=== PATIENT | male | born 1990 | race Two or more races ===

== ENCOUNTER → 2016-12-28 | Outpatient (CLI) | payer BC ==
--- NOTE | 2016-12-28 14:13 | REP ---
SCROTAL ULTRASOUND: Real-time sonographic evaluation of the scrotum and contents performed. There is reportedly a history of enlarged left testicle for one year. Right testicle appears normal in size and echotexture measuring 4.5 x 2.4 x 3.6 cm. The left testicle is almost completely replaced by a large heterogeneous hypoechoic mass measuring approximately 5.8 x 3.6 x 6.1 cm. A small amount of normal testicular tissue is seen anteriorly. No mass is seen in the right epididymis. The left epididymis demonstrates heterogeneous echotexture and enlargement. The diameter on the left is approximately 17 mm in the region of the epididymal head. There is hyperemia in the left testicle with duplex Doppler evaluation. There is no torsion, with RI of the right testicle 0.65 and the left testicle 0.57. IMPRESSION: Large mass left testicle most consistent with neoplasm. There may be extension into the left epididymal head with enlargement and heterogeneous echotexture of that structure. Signed by José Marsh MD 12/28/2016 04:40 P
== END ==
LOC: M RAD 12:56
PROVIDERS: ATTEND Family Medicine
DX: N50.89 Other specified disorders of the male genital organs (principal)

== ENCOUNTER → 2016-12-30 | Outpatient (REF) | payer BC ==
[~2016-12-30] MED LIST: SERT50TA PO
[2016-12-30 11:43] LABS: ALBUMIN 4.1 GM/DL (3.2-5.2); ALBUMIN/GLOBULIN RATIO 1.37 (1.00-1.93); ALKALINE PHOSPHATASE 75 U/L (45-117); ALT/SGPT 36 U/L (12-78); ANION GAP 6 MEQ/L (8-16); AST/SGOT 16 U/L (15-37); BLOOD UREA NITROGEN 17 MG/DL (7-18); CALCIUM LEVEL 8.7 MG/DL (8.5-10.1); CARBON DIOXIDE LEVEL 28 MEQ/L (21-32); CHLORIDE LEVEL 106 MEQ/L (98-107); CHOLESTEROL LEVEL 151 MG/DL (<200); GLOMERULAR FILTRATION RATE > 60.0 (>60); GLUCOSE, FASTING 109 MG/DL (70-105); POTASSIUM SERUM 4.2 MEQ/L (3.5-5.1); SODIUM LEVEL 140 MEQ/L (136-145); TOTAL PROTEIN 7.1 GM/DL (6.4-8.2); TRIGLYCERIDES LEVEL 61 MG/DL (<150)
== END ==
LOC: M SFHCCLAY 08:42
PROVIDERS: ATTEND Family Medicine
DX: Z00.00 Encounter for general adult medical examination without abnormal findings (principal)

== ENCOUNTER → 2016-12-30 | Outpatient (CLI) | payer BC ==
[2016-12-30 14:30] LABS: MEAN CORPUSCULAR HEMOGLOBIN 31.4 pg (27.0-33.0); MEAN CORPUSCULAR HGB CONC 33.9 g/dl (32.0-36.5); MEAN CORPUSCULAR VOLUME 92.6 fl (80.0-96.0); WHITE BLOOD COUNT 6.8 K/mm3 (4.0-10.0)
[2016-12-30 14:35] LABS: INR 0.98
[2016-12-30 15:04] LABS: ANION GAP 7 MEQ/L (8-16); BLOOD UREA NITROGEN 15 MG/DL (7-18); CALCIUM LEVEL 9.2 MG/DL (8.5-10.1); CARBON DIOXIDE LEVEL 27 MEQ/L (21-32); CHLORIDE LEVEL 105 MEQ/L (98-107); CREATININE FOR GFR 0.79 MG/DL (0.70-1.30); GLOMERULAR FILTRATION RATE > 60.0 (>60); GLUCOSE, FASTING 89 MG/DL (70-105); POTASSIUM SERUM 4.4 MEQ/L (3.5-5.1); SODIUM LEVEL 139 MEQ/L (136-145)
== END ==
LOC: M SMT 12:12
PROVIDERS: ATTEND Nurse Practitioner Women's Health
DX: Z01.818 Encounter for other preprocedural examination (principal); N50.9 Disorder of male genital organs, unspecified

== ENCOUNTER → 2017-01-03 | Day surgery (SDC) | payer BC, SELFPAY ==
[~2017-01-03] VITALS: Ht 185.4 cm; Wt 124.7 kg
[~2017-01-03] MED LIST changes: +BUPIVACAINE HCL 0.25% 30 ML VIAL As Ordered ONE; +KETOROLAC 30 MG/ML VIAL (J1885) As Ordered ONE; +LIDOCAINE 2% INJ 100 MG/5 ML SDV (FOR ANES.) As Ordered ONE; +LR 1,000 ML IV SCH; +MEPERIDINE INJ 25 MG/ML VIAL (J2175) As Ordered ONE; +METOCLOPRAMIDE INJ 10MG/2ML VIAL (J2765) IV PRN; +MIDAZOLAM INJ 2 MG/2 ML VIAL (J2250) As Ordered ONE; +MORPHINE 2 MG/ML 1ML SYRINGE IV PRN; +ONDANSETRON 4MG/2ML VIAL (J2405) As Ordered ONE; +ONDANSETRON 4MG/2ML VIAL (J2405) IV PRN; +PROPOFOL 200 MG/20 ML VIAL As Ordered ONE; +ROCURONIUM BROMIDE 50 MG/5 ML VIAL As Ordered ONE; +ceFAZolin SOD 1 GM in D5W MINI-BAG PLUS 50 ML IV ONE; +fentaNYL 100 MCG/2 ML INJECTION (J3010) As Ordered ONE; +fentaNYL 100 MCG/2 ML INJECTION (J3010) IV PRN
[2017-01-03] MEDS: MEPERIDINE INJ 25 MG/ML VIAL (J2175) IV PRN ×2 (14:13→14:20)
[2017-01-03] MEDS: PERCOCET 5MG/325MG TAB PO PRN ×2 (14:39→15:02)
[2017-01-03 17:50] VITALS: BP 119/71
--- NOTE | 2017-01-04 18:37 | RO ---
DATE OF PROCEDURE: 01/03/2017 PREPROCEDURE DIAGNOSIS: Left testicular mass. POSTPROCEDURE DIAGNOSIS: Left testicular mass. PROCEDURE: Left radical orchiectomy. SURGEON: Mark Foy MD MACHINE ROOM ENGINEER: None. ANESTHESIA: General. OPERATIVE INDICATIONS: This 26-year-old male who was found to have a large heterogeneous and indurated left testicle. Left scrotal ultrasound was notable for an inflammatory process seemingly involving the majority of the left testicle, which raised concern for testicular cancer. It was recommended that he be brought to the operating room today for the above listed procedure. DESCRIPTION OF PROCEDURE: The patient was brought to the operating room and general anesthesia was induced. Prophylactic antibiotics were infused. He was then placed in the supine position and prepped and draped in the usual sterile fashion. At this point, an approximately 3-4 cm incision was made over the left external ring. We then dissected down through the subcutaneous tissue and opened the fascia using the Metzenbaum scissors. The external spermatic tissue was then released using Bovie electrocautery and the spermatic cord identified. At this point, a [place] drain was placed around the spermatic cord to occlude it. We then pulled the testicle through our incision and released all the gubernacular fibers using the Bovie electrocautery. We kept doing this until the testicle was released from the scrotum. We then dissected the spermatic cord up to the level of the internal ring; and at this point, a right-angle clamp was placed on the spermatic cord. Just distal to the clamp, the cord was split into two separate packets and two additional clamps were placed around each of these packets. At this point, the spermatic cord was transected just distal to those two clamps. Two separate #0 silk ties were then placed around each of these clamps to ligate each of the packets. These ties were cut long. Next, a #0 silk suture ligature was placed just proximal to the more proximal right-angle clamp and this was tied down. This #0 silk suture was also cut long in case needed for future identification. At this point, hemostasis was excellent. We then irrigated the wound with warm saline and then suctioned it all out. At this point, I then closed the external oblique fascia using a running #2-0 Vicryl suture and I made sure not to catch the ilioinguinal nerve in this stitch. Of note, the patient's fascia did not appear to be very strong, but I did reapproximate it well. We then irrigated the subcutaneous tissue with warm saline, and then the subcutaneous tissues were reapproximated with interrupted #2-0 chromic sutures. Skin was then closed with a running #4-0 Monocryl subcuticular stitch. Local anesthesia was then applied and, after this point, Dermabond was applied and this marked the conclusion of the procedure. The patient was then awakened from the anesthesia and transported to the recovery room in stable condition. ESTIMATED BLOOD LOSS: 5 mL. INTRAOPERATIVE COMPLICATIONS: None. SPECIMENS: Left testicle and spermatic cord. PLAN: The patient will followup in the clinic in approximately 2 weeks to discuss his pathology results. I will also get a CAT scan of his abdomen and pelvis to assess for any retroperitoneal disease. ROSLYN
== END | disposition home or self-care (01) ==
LOC: M SDC 09:22
PROVIDERS: ATTEND Urology
DX: C62.92 Malignant neoplasm of left testis, unspecified whether descended or undescended (principal); F41.9 Anxiety disorder, unspecified; F17.200 Nicotine dependence, unspecified, uncomplicated; E66.9 Obesity, unspecified; Z79.899 Other long term (current) drug therapy

== ENCOUNTER → 2017-01-24 | Outpatient (CLI) | payer BC ==
[~2017-01-24] MED LIST changes: -BUPIVACAINE HCL 0.25% 30 ML VIAL As Ordered ONE; -KETOROLAC 30 MG/ML VIAL (J1885) As Ordered ONE; -LIDOCAINE 2% INJ 100 MG/5 ML SDV (FOR ANES.) As Ordered ONE; -LR 1,000 ML IV SCH; -MEPERIDINE INJ 25 MG/ML VIAL (J2175) As Ordered ONE; -METOCLOPRAMIDE INJ 10MG/2ML VIAL (J2765) IV PRN; -MIDAZOLAM INJ 2 MG/2 ML VIAL (J2250) As Ordered ONE; -MORPHINE 2 MG/ML 1ML SYRINGE IV PRN; -ONDANSETRON 4MG/2ML VIAL (J2405) As Ordered ONE; -ONDANSETRON 4MG/2ML VIAL (J2405) IV PRN; -PROPOFOL 200 MG/20 ML VIAL As Ordered ONE; -ROCURONIUM BROMIDE 50 MG/5 ML VIAL As Ordered ONE; -ceFAZolin SOD 1 GM in D5W MINI-BAG PLUS 50 ML IV ONE; -fentaNYL 100 MCG/2 ML INJECTION (J3010) As Ordered ONE; -fentaNYL 100 MCG/2 ML INJECTION (J3010) IV PRN
--- NOTE | 2017-01-25 02:58 | REP ---
Clinical: Testicular cancer . Comparison: None . Technique: PA and lateral. Findings: The mediastinum and cardiac silhouette are normal. The lung emmanuel are clear and without acute consolidation, effusion, or pneumothorax. The skeletal structures are intact and normal. Impression: 1. No acute cardiopulmonary process. Signed by Aubrey Mitchell MD 01/25/2017 02:49 A
[2017-01-25 14:16] LABS: HCG SERUM TUMOR MARKER QUANT < 1 mIU/mL (0-3)
== END ==
LOC: M LAB 11:16
PROVIDERS: ATTEND Urology
DX: C62.90 Malignant neoplasm of unspecified testis, unspecified whether descended or undescended (principal)

== ENCOUNTER → 2017-02-15 | Outpatient (CLI) | payer BC ==
--- NOTE | 2017-02-16 08:54 | RADONC ---
RADIATION ONCOLOGY CONSULTATION NOTE: DATE: 02/15/2017 CHART NUMBER: [id number]. DIAGNOSIS: Testicle seminoma. STAGE: II A, T1N1M0. ECOG PERFORMANCE STATUS: Zero. CONSULTATION NOTE: Mr. 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 HISTORY OF PRESENT ILLNESS: The patient was in his usual state of health until he noticed a large mass of his left testicle. On 01/03/2017, the patient underwent left radical orchiectomy. Pathology found a 6 cm seminoma. There was no evidence of involvement of the epididymis. There was no extension to the tunica vaginalis. There was no extension to the scrotum. No involvement of the spermatic cord was noted. There was no lymph vascular invasion. All margins were negative for malignancy. Of note, the patient underwent blood work prior to surgery and had an LDH of 346. His alpha-fetoprotein was 2.1. Beta hCG was 3. Following surgery, on 01/24/2017, these were repeated and his LDH had fallen to 154, his alpha-fetoprotein was down to 1.4 and his beta hCG had dropped to below 1. However, a CT scan was done on 01/10/2017, which showed a few periaortic retroperitoneal lymph nodes measuring up to 14 mm. He is therefore being sent to us for consideration of external beam radiation therapy. PAST MEDICAL HISTORY: The patient's past medical history is noncontributory. He has been in excellent health. ALLERGIES: The patient has NO KNOWN DRUG ALLERGIES. SOCIAL HISTORY: The patient currently smokes approximately one pack of cigarettes per day for the last 9 years. He drinks alcohol routinely. FAMILY HISTORY: The patient's family history is negative for testicular cancer or other malignancies. REVIEW OF SYSTEMS: The patient's review of systems is largely noncontributory except for some anxiety. He denies standard review of systems. Denies nausea, vomiting, fevers, chills, night sweats, diplopia, headaches, anxiety or depression, anorexia, weight loss, visual disturbances, chest pain, urinary or bowel difficulties, bone pain, or neurological problems. PHYSICAL EXAMINATION: The patient is a well-developed, well-nourished male in no acute distress. HEENT exam is normocephalic, atraumatic. Extraocular movements are intact. There is no palpable cervical, supraclavicular, infraclavicular, axillary, or inguinal lymphadenopathy present. Lungs are clear to auscultation and percussion. Heart has a regular rate and rhythm. Abdomen is benign with no hepatosplenomegaly, masses, or tenderness. Genital examination reveals normal external genitalia. His remaining testicle is free of nodularity. His scrotum is also free of nodularity. Skeletal examination reveals no tenderness to pressure or percussion of the bony skeleton. Extremities reveal no clubbing, cyanosis, or edema. Neurologic exam is grossly intact, as is the remainder of the physical examination. IMAGING: I have personally reviewed the patient's CT scan done on 01/10/2017, which shows his slightly enlarged retroperitoneal lymphadenopathy. ASSESSMENT: I had a very lengthy discussion with this patient with regards to external beam radiation therapy. We discussed and reviewed closely the NCCN guidelines. I have placed this patient on our list for discussion at our multidisciplinary tumor conference tomorrow. He will call me with the final recommendations following that. At this time, the patient does wish to undergo radiation and I think that quite reasonable. I have discussed with him the potential benefits as well as possible acute and chronic sequelae of external beam radiation therapy. We discussed logistics of treatment planning, simulation and subsequent fractionated daily radiation treatments. I also discussed with him in length the possibility of sperm banking. We have shown him the scrotal shield that we will be using throughout the course of treatment, but I explained to him carefully the amount of internal scatter that is possible. In addition, I let him know that he should avoid totally for the next year or so, nonetheless. I have tentatively scheduled him also for initiation of treatment planning and simulation. Thank you for allowing us to participate in the care of this very pleasant gentleman. If I could be of any further assistance or provide you with any information, please free to contact me anytime. As always, warm regards. cc: Mark Foy MD
== END ==
LOC: M ONCR 13:20
PROVIDERS: ATTEND Radiology Radiation Oncology
DX: C62.90 Malignant neoplasm of unspecified testis, unspecified whether descended or undescended (principal)

== ENCOUNTER 2017-03-07 11:51 | Outpatient (RCR) | payer BC ==
--- NOTE | 2017-03-14 09:46 | RADONC ---
RADIATION ONCOLOGY PROGRESS NOTE DATE: 03/14/2017 CHART NUMBER: [id number] Mr. York underwent his first fraction of radiation today to his periaortics and pelvic lymph nodes. It was tolerated without difficulty or discomfort. REVIEW OF SYSTEMS: The patient's review of systems is noncontributory. Denies nausea, vomiting, fevers, chills, night sweats, diplopia, headaches, anxiety or depression, anorexia, weight loss, visual disturbances, chest pain, urinary or bowel difficulties, bone pain, or neurological problems. PHYSICAL EXAMINATION: The patient has no skin changes present secondary to radiation since he is undergoing his first fraction today. The remainder of his physical exam remains unchanged. We did apply the clamshell to protect his contralateral testicle. Radiation will continue as scheduled.
[2017-03-21] MEDS ORDERED: ZOFR8TAB PO (13:07)
--- NOTE | 2017-03-22 07:47 | RADONC ---
RADIATION ONCOLOGY PROGRESS NOTE: DATE: 03/21/2017 CHART NUMBER: [id number]. PROGRESS NOTE: Mr. York is presently at a dose of 1000 cGy to his periaortic and pelvis and is tolerating treatments quite well at this point with no complaints related to his radiation therapy. He is having no urinary or bowel difficulties and no bone pain. He is having no significant nausea or other problems. REVIEW OF SYSTEMS: The patient's review of systems is noncontributory. Denies nausea, vomiting, fevers, chills, night sweats, diplopia, headaches, anxiety or depression, anorexia, weight loss, visual disturbances, chest pain, urinary or bowel difficulties, bone pain, or neurological problems. PHYSICAL EXAMINATION: The patient's skin is in good condition with no evidence of radiation change present. There is no moist or dry desquamation. The remainder of his physical exam remains unchanged. Mr. York is tolerating treatments quite well and radiation will continue as scheduled.
== END 2017-03-25 ==
LOC: M ONCR 11:51
PROVIDERS: ATTEND Radiology Radiation Oncology
DX: C62.12 Malignant neoplasm of descended left testis (principal)

== ENCOUNTER → 2017-03-07 | Outpatient (CLI) | payer BC | LOC: M RAD 10:39 | PROVIDERS: ATTEND Radiology Radiation Oncology | DX: C62.90 Malignant neoplasm of unspecified testis, unspecified whether descended or undescended (principal) ==

== ENCOUNTER 2017-03-30 10:18 | Outpatient (RCR) | payer BC ==
[~2017-03-30 10:18] MED LIST changes: +ZOFR8TAB PO
--- NOTE | 2017-04-01 10:57 | RADONC ---
RADIATION ONCOLOGY PROGRESS NOTE DATE: 03/30/2017 CHART NUMBER: [id number] Mr. York is presently at a dose of 2000 cGy to his pelvic and periaortic lymph nodes and is tolerating treatments quite well at this point with no significant difficulties related to his radiation therapy. He is having no urinary or bowel problems and no bone pain. The patient's review of systems is noncontributory. He denies nausea, vomiting, fevers, chills, night sweats, diplopia, headaches, anxiety or depression, anorexia, weight loss, visual disturbances, chest pain, urinary or bowel difficulties, bone pain, or neurological problems. PHYSICAL EXAMINATION: The patient's skin is in good condition with no evidence of moist or dry desquamation. The remainder of his physical exam remains unchanged. Mr. York is tolerating treatments quite well and radiation will continue as scheduled.
--- NOTE | 2017-04-04 15:25 | RADONC ---
RADIATION ONCOLOGY PROGRESS NOTE DATE: 04/04/2017 CHART NUMBER: [id number] Mr. York is presently at a dose of 2600 cGy to his periaortic lymph node and is tolerating treatments quite well at this point with no complaints related to his radiation therapy. He is having no urinary or bowel difficulties and no bone pain. The patient's review of systems is noncontributory. He denies nausea, vomiting, fevers, chills, night sweats, diplopia, headaches, anxiety or depression, anorexia, weight loss, visual disturbances, chest pain, urinary or bowel difficulties, bone pain, or neurological problems. PHYSICAL EXAMINATION: The patient's skin is in good condition with no evidence of moist or dry desquamation. The remainder of his physical exam remains unchanged. Mr. York is tolerating treatments quite well and radiation will continue as scheduled.
--- NOTE | 2017-04-07 15:15 | RADONC ---
RADIATION ONCOLOGY TREATMENT SUMMARY DATE: 04/07/2017 CHART NUMBER: DIAGNOSIS: Seminoma. STAGE: IIA, T1N1M0. ECOG PERFORMANCE STATUS: 0. TREATMENT SUMMARY: Mr. 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 We treated the patient to his clinically positive periaortic lymph nodes for a dose of 3000 cGy delivered in 15 fractions of 200 cGy each over 24 elapsed days from 03/14/2017 through 04/07/2017. The patient was treated on the linear accelerator utilizing a 18 MV photon beam via anterior and posterior parallel opposed emmanuel. We initially treated the periaortic and ipsilateral pelvic lymph nodes for a dose of 2000 cGy delivered in 10 fractions of 200 cGy each and subsequently coned down to deliver the additional 1000 cGy in five fractions of 200 cGy each to the clinically involved lymph nodes. A clamshell testicle protector was used throughout the course of treatment. Mr. York tolerated his treatments quite well with no difficulties related to his radiation therapy. He was able complete therapy as prescribed without interruption. I have scheduled the patient see me again in 1 month for further followup. He will also continue to be followed by his other physicians as well. cc: Mark Foy MD
== END 2017-04-25 ==
LOC: M ONCR 10:18
PROVIDERS: ATTEND Radiology Radiation Oncology
DX: C62.12 Malignant neoplasm of descended left testis (principal)

== ENCOUNTER → 2017-05-18 | Outpatient (CLI) | payer BC ==
--- NOTE | 2017-05-18 16:27 | REP ---
Chest x-ray: Two views. History: Seminoma . Comparison study: January 24, 2017 . Findings: The lungs are well inflated and free of infiltrate. The pleural angles are sharp. The heart size is normal. Pulmonary vasculature is not increased. No significant bony abnormality is seen. Impression: Negative chest x-ray. Signed by Jamison Guzman MD 05/18/2017 04:18 P
== END ==
LOC: M RAD 15:10
PROVIDERS: ATTEND Radiology Radiation Oncology
DX: C62.12 Malignant neoplasm of descended left testis (principal)

== ENCOUNTER → 2017-05-18 | Outpatient (CLI) | payer BC ==
--- NOTE | 2017-05-19 12:20 | RADONC ---
RADIATION ONCOLOGY FOLLOWUP NOTE DATE: 05/18/2017 CHART NUMBER [id number] DIAGNOSIS: Seminoma STAGE: IIA, T1N1M0. ECOG PERFORMANCE STATUS: 0. Mr. 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 The patient presents today reporting that he is doing quite well with no complaints at this time related to his radiation therapy or disease. He is having no urinary or bowel difficulties. No bone pain. The patient's review of systems is noncontributory. He denies nausea, vomiting, fevers, chills, night sweats, diplopia, headaches, anxiety or depression, anorexia, weight loss, visual disturbances, chest pain, urinary or bowel difficulties, bone pain, or neurological problems. PHYSICAL EXAMINATION: The patient is a well-developed, well-nourished male in no acute distress. HEENT exam is normocephalic, atraumatic. Extraocular movements are intact. There is no palpable cervical, supraclavicular, infraclavicular, axillary, or inguinal lymphadenopathy present. Lungs are clear to auscultation and percussion. Heart has a regular rate and rhythm. Abdomen is benign with no hepatosplenomegaly, masses, or tenderness. Rectal examination reveals a normal anal sphincter tone. His prostate is smooth with no evidence of nodularity. Genital examination reveals normal external genitalia. His scrotum is free of nodularity. His remaining testicle is free of masses or nodularity. Skeletal examination reveals no tenderness to pressure or percussion of the bony skeleton. Extremities reveal no clubbing, cyanosis, or edema. Neurologic exam is grossly intact, as is the remainder of the physical examination. ASSESSMENT: The patient is clinically HANNAH at this time and will be seen by us again in 3 months for further followup. He will also continue to be followed by his other physicians as well. I have ordered a new CT scan to evaluate his retroperitoneal lymphadenopathy at this point. In addition, blood work will be ordered. The patient will continue to be followed by his other physicians as well. cc: Mark Foy MD
== END ==
LOC: M ONCR 14:43
PROVIDERS: ATTEND Radiology Radiation Oncology
DX: C62.12 Malignant neoplasm of descended left testis (principal)

== ENCOUNTER → 2017-05-27 | Outpatient (CLI) | payer BC ==
[~2017-05-27] MED LIST changes: +CONRAY-60 60% 50ML VIAL (Q9961) As Ordered ONE; +GASTROGRAFIN SOLUTION 30ML (Q9963) As Ordered ONE; +ISOVUE-370 76% 100ML VIAL (Q9967) As Ordered ONE
--- NOTE | 2017-05-27 20:19 | REP ---
CT abdomen and pelvis without and with IV contrast: With oral contrast. History: Seminoma. Evaluation post-treatment. Comparison CT study January 10, 2017. CT contrast dose: 100 ml of intravenous Isovue 370. CT findings: Preliminary digital message clerk radiograph is unremarkable. Previously noted small noncalcified nodule is again seen in the lower lobe of the left lung on today's study, page 12 of 57, series 304. No new nodules appreciated. The liver and the spleen remain normal in size and homogeneous in texture. No adrenal lesion is observed. Pancreas is unremarkable. No gallbladder abnormality is seen. The kidneys enhance symmetrically. No renal mass, hydronephrosis cyst or calculus is observed. The previously noted periaortic lymph nodes visible at the level of the renal vascular pedicle are smaller. The largest of these measure 8 and 7 mm in long axis dimension today, previously up to 14 mm. No new adenopathy is seen. No inguinal or obturator adenopathy is seen. The patient is status post left orchiectomy. Small and large intestinal bowel loops are normal. A normal appendix is seen. No abdominal wall defect is seen. No bony destructive lesion is appreciated. Impression: Improved periaortic lymph nodes. No suspicious finding today. Signed by Jamison Guzman MD 05/31/2017 08:19 A
== END ==
LOC: M RAD 14:01
PROVIDERS: ATTEND Radiology Radiation Oncology
DX: C62.12 Malignant neoplasm of descended left testis (principal)
CPT/HCPCS: 74178; Q9961; Q9963; Q9967

== ENCOUNTER → 2017-08-17 | Outpatient (CLI) | payer BC ==
[~2017-08-17] MED LIST changes: -CONRAY-60 60% 50ML VIAL (Q9961) As Ordered ONE; -GASTROGRAFIN SOLUTION 30ML (Q9963) As Ordered ONE; -ISOVUE-370 76% 100ML VIAL (Q9967) As Ordered ONE
--- NOTE | 2017-08-20 11:52 | RADONC ---
RADIATION ONCOLOGY FOLLOWUP NOTE DATE: 08/17/2017 CHART NUMBER: [id number] DIAGNOSIS: Seminoma. STAGE: IIA, T1N1M0. ECOG PERFORMANCE STATUS: 0 Mr. 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 The patient presents today reporting that he is doing quite well with no complaints at this time related to his radiation therapy or disease other than some itching of the skin. The patient's review of systems is noncontributory except for skin itching. He denies nausea, vomiting, fevers, chills, night sweats, diplopia, headaches, anxiety or depression, anorexia, weight loss, visual disturbances, chest pain, urinary or bowel difficulties, bone pain, or neurological problems. PHYSICAL EXAMINATION: The patient is a well-developed, well-nourished male in no acute distress. HEENT exam is normocephalic, atraumatic. Extraocular movements are intact. There is no palpable cervical, supraclavicular, infraclavicular, axillary, or inguinal lymphadenopathy present. Lungs are clear to auscultation and percussion. Heart has a regular rate and rhythm. Abdomen is benign with no hepatosplenomegaly, masses, or tenderness. Genital examination reveals normal external genitalia. His remaining testicle is free of nodularity. There is no nodularity involving his scrotum. Skeletal examination reveals no tenderness to pressure or percussion of the bony skeleton. Extremities reveal no clubbing, cyanosis, or edema. Neurologic exam is grossly intact, as is the remainder of the physical examination. ASSESSMENT: The patient is clinically HANNAH at this time and will be seen by us again in 6 months for further followup. He will also continue to be followed by his other physicians as well. cc: Mark Foy MD
== END ==
LOC: M ONCR 15:44
PROVIDERS: ATTEND Radiology Radiation Oncology
DX: Z08 Encounter for follow-up examination after completed treatment for malignant neoplasm (principal); Z85.47 Personal history of malignant neoplasm of testis
CPT/HCPCS: 36415; 82105; 83615; 84702; G0463

== ENCOUNTER → 2018-02-15 | Outpatient (CLI) | payer BC ==
[2018-02-15 15:00] LABS: LDH LACTATE DEHYDROGENASE 151 U/L (87-241)
[2018-02-16 08:11] LABS: HCG SERUM TUMOR MARKER QUANT < 1 mIU/mL (0-3)
[2018-02-17 10:07] LABS: ALPHA FETOPROTEIN TUMOR QUANT 1.6 NG/ML (<8.1)
== END ==
LOC: M ONCR 13:14
DX: C62.12 Malignant neoplasm of descended left testis (principal)

== ENCOUNTER → 2018-09-27 | Outpatient (CLI) | payer BC ==
[~2018-09-27] MED LIST changes: -ZOFR8TAB PO; +ZOFR8TAB24 PO
--- NOTE | 2018-09-28 09:42 | RADONC ---
RADIATION ONCOLOGY FOLLOWUP NOTE DATE: 09/27/2018 CHART NUMBER: [id number] DIAGNOSIS: Seminoma. STAGE: II A, T1N1M0. ECOG PERFORMANCE STATUS: Zero. FOLLOWUP NOTE: Mr. York is a very pleasant, 27-year-old white male with the diagnosis of a stage II A, T1N1M0, seminoma of his left testicle who is presenting to us today for routine followup visit 1 year and 6 months post completion of external beam radiation therapy. The patient presents today reporting that he is doing quite well with no complaints at this time related to his radiation therapy or disease. He has no urinary or bowel difficulties and no bone pain. REVIEW OF SYSTEMS: The patient's review of systems is noncontributory. Denies nausea, vomiting, fevers, chills, night sweats, diplopia, headaches, anxiety or depression, anorexia, weight loss, visual disturbances, chest pain, urinary or bowel difficulties, bone pain, or neurological problems. PHYSICAL EXAMINATION: The patient is a well-developed, well-nourished white male in no acute distress. HEENT exam is normocephalic, atraumatic. Extraocular movements are intact. There is no palpable cervical, supraclavicular, infraclavicular, axillary or inguinal lymphadenopathy present. His lungs are clear to auscultation and percussion. His heart has regular rate and rhythm. His abdomen is benign with no hepatosplenomegaly, masses or tenderness. Genital examination reveals normal external genitalia. His remaining testicle is free of nodularity. His scrotum is also free of nodularity. Extremities reveal no clubbing, cyanosis or edema. Neurologic exam is grossly intact. ASSESSMENT: The patient is clinically HANNAH at this time and will be seen by us again in 6 months for further followup. He will also continue to be followed by his other physicians as well. cc: Mark Foy MD
== END ==
LOC: M ONCR 09:21
PROVIDERS: ATTEND Radiology Radiation Oncology
DX: C62.12 Malignant neoplasm of descended left testis (principal)

== ENCOUNTER → 2019-03-14 | Outpatient (CLI) | payer OTHER ==
[~2019-03-14] MED LIST changes: +GASTROGRAFIN SOLUTION 30ML (Q9963) As Ordered ONE; +ISOVUE-370 76% 100ML VIAL (Q9967) As Ordered ONE; +SERT-141 PO; -SERT50TA PO
--- NOTE | 2019-03-14 14:32 | REP ---
CT of the abdomen and pelvis with IV and oral contrast: Comparison is 05/27/2017. Within the visualized lower lung emmanuel. There is a 7 mm lung nodule in the lateral segment of the left lower lobe on image 22. This measured 10 mm previously. The visualized lung emmanuel otherwise unremarkable. The hepatic parenchyma is homogeneous. The gallbladder is unremarkable. The pancreas and spleen are normal size and unremarkable. The adrenals and kidneys are unremarkable. The abdominal aorta is unremarkable. There are a few normal-sized periaortic nodes measuring up to 4 mm in short axis diameter. These measured up to 6 mm short axis previously. No mesenteric lymph nodes are identified. There is no ascites. The bowel and mesentery are unremarkable. Pelvis: The appendix is unremarkable. There is no ascites or adenopathy. The bladder is unremarkable. The pelvic bowel loops are unremarkable. There are no lytic, blastic or destructive skeletal changes. Impression: The left lower lobe lung nodule has decreased in size. The periaortic lymph nodes have decreased in size and are normal size. Otherwise, negative CT study of the abdomen and pelvis. Electronically Signed by José Costa MD 03/14/2019 02:23 P
== END ==
LOC: M RAD 11:18
PROVIDERS: ATTEND Radiology Radiation Oncology
DX: R91.1 Solitary pulmonary nodule (principal); R59.9 Enlarged lymph nodes, unspecified
CPT/HCPCS: 74177; Q9963; Q9967

== ENCOUNTER → 2019-10-03 | Outpatient (CLI) | payer OTHER ==
[~2019-10-03] MED LIST changes: -GASTROGRAFIN SOLUTION 30ML (Q9963) As Ordered ONE; -ISOVUE-370 76% 100ML VIAL (Q9967) As Ordered ONE
[2019-10-03 16:15] LABS: BASO % 0.6 % (0.0-1.0); EOS # 0.1 10^3/uL (0.0-0.5); EOS % 0.8 % (0.0-3.0); HEMATOCRIT 41.4 % (42.0-52.0); HEMOGLOBIN 14.5 g/dl (13.5-17.5); LYMPH # 1.6 10^3/uL (1.5-5.0); LYMPH % 21.5 % (24.0-44.0); MEAN CORPUSCULAR HEMOGLOBIN 31.5 pg (27.0-33.0); MONO # 0.4 10^3/uL (0.0-0.8); MONO % 5.7 % (0.0-5.0); NEUTROPHILS # 5.1 10^3/uL (1.5-8.5); NEUTROPHILS % 71.1 % (36.0-66.0); PLATELET COUNT, AUTOMATED 213 10^3/uL (150-450); WHITE BLOOD COUNT 7.2 10^3/uL (4.0-10.0)
[2019-10-03 16:40] LABS: ALT/SGPT 28 U/L (12-78); BILIRUBIN,TOTAL 1.3 MG/DL (0.2-1.0); BLOOD UREA NITROGEN 13 MG/DL (7-18); CALCIUM LEVEL 9.2 MG/DL (8.5-10.1); CARBON DIOXIDE LEVEL 27 MEQ/L (21-32); CHLORIDE LEVEL 107 MEQ/L (98-107); CREATININE FOR GFR 0.77 MG/DL (0.70-1.30); GLOMERULAR FILTRATION RATE > 60.0 (>60); GLUCOSE, FASTING 92 MG/DL (70-100); LDH LACTATE DEHYDROGENASE 123 U/L (87-241); POTASSIUM SERUM 3.7 MEQ/L (3.5-5.1); SODIUM LEVEL 141 MEQ/L (136-145); TOTAL PROTEIN 7.2 GM/DL (6.4-8.2)
== END ==
LOC: M ONCR 14:36
PROVIDERS: ATTEND Radiology Radiation Oncology
DX: C62.12 Malignant neoplasm of descended left testis (principal)
CPT/HCPCS: 36415; 80053; 82105; 83615; 84702; 85027; G0463

== ENCOUNTER → 2020-03-17 | Outpatient (CLI) | payer OTHER ==
[~2020-03-17] MED LIST changes: +GASTROGRAFIN SOLUTION 30ML (Q9963) As Ordered ONE; +ISOVUE-370 76% 100ML VIAL As Ordered ONE
--- NOTE | 2020-03-17 14:14 | REP ---
REASON: Followup testicular carcinoma. COMPARISON: Multiple, the latest 03/14/2019. CONTRAST: 100 mL Isovue 370. The lung bases are clear. The liver, gallbladder, spleen, pancreas and adrenal glands and kidneys are within normal limits. The abdominal aorta and para-aortic regions are within normal limits. The bowel loops and their mesenteries are within normal limits. There is no mass or adenopathy. There is no free fluid or free air. CT PELVIS: The bowel loops and their mesenteries are within normal limits. There is no mass or adenopathy. There is no free fluid or free air. Bone window technique through the examination shows the osseous structures to be within normal limits. IMPRESSION: CT findings are within normal limits. Electronically Signed by Levi Pack DO 03/17/2020 04:38 P
== END ==
LOC: M RAD 09:06
PROVIDERS: ATTEND Radiology Radiation Oncology
DX: C62.92 Malignant neoplasm of left testis, unspecified whether descended or undescended (principal)
CPT/HCPCS: 74177; Q9963; Q9967